=== PATIENT | female | born 1940 | race American Indian/Alaskan Native ===

== ENCOUNTER 2016-07-24 22:18 | Emergency (ER) | payer MEDICARE ==
[2016-07-24 23:58] LABS: Basophils % (Auto) 0.4 % (0.0-1.8); Hematocrit 45.2 % (30.3-42.9); Hemoglobin 14.5 gm/dl (10.1-14.3); Mean Corpuscular HGB Conc 32 % (30-34); Mean Corpuscular Hemoglobin 27 pg (28-32); Mean Corpuscular Volume 83 fl (79-97); Platelet Count 160 K/mm3 (140-440); Red Blood Count 5.46 M/mm3 (3.65-5.03); Red Cell Distribution Width 13.6 % (13.2-15.2); White Blood Count 5.4 K/mm3 (4.5-11.0)
[2016-07-25 01:06] LABS: BUN/Creatinine Ratio 25.71; Blood Urea Nitrogen 18 mg/dL (7-17); Calcium 9.6 mg/dL (8.4-10.2); Carbon Dioxide 27 mmol/L (22-30); Chloride 100.3 mmol/L (98-107); Glucose 102 mg/dL (65-100); Potassium 3.3 mmol/L (3.6-5.0); Sodium 141 mmol/L (137-145)
[2016-07-25 01:19] LABS: Anion Gap 17 mmol/L
[2016-07-25] MEDS ORDERED: K-DUR PO ONE (02:18)
--- NOTE | 2016-07-25 03:01 | Cat Scan Report ---
FINAL REPORT PROCEDURE: CT HEAD/BRAIN WO CON TECHNIQUE: Computerized tomography of the head was performed without contrast material. HISTORY: dizziness, ? dementia, COMPARISON: No prior studies are available for comparison. FINDINGS: Skull and scalp: Normal. Paranasal sinuses: Normal. Ventricles and subarachnoid spaces: Normal. Cerebrum: There is no evidence of acute intracranial hemorrhage, hematoma, infarction, midline displacement or mass. There are numerous small old lacunar infarctions of both basal ganglia.. Cerebellum and brainstem: No evidence of hemorrhage, acute infarction or mass. Vasculature: Normal. Comments: None. IMPRESSION: There is no evidence of an acute intracranial process. Old lacunar infarctions of both basal ganglia are noted.
[2016-07-25] MEDS ORDERED: NORVASC PO ONE (03:19)
[2016-07-25 03:21] LABS: Bilirubin,Urine NEG (Negative); Blood,Urine NEG (Negative); Ketones,Urine NEG (Negative); Leukocyte Esterase,Urine TR (Negative); Mucus,Urine FEW /HPF; Nitrite,Urine NEG (Negative); Protein,Urine <15 mg/dL mg/dL (Negative); Urobilinogen,Urine < 2.0 mg/dL (<2.0)
--- NOTE | 2016-07-25 03:58 | Emergency Department Report ---
ED Dizziness HPI - General Chief Complaint: Dizziness Stated Complaint: DIZZINESS/HEADACHE Time Seen by Provider: 07/25/16 02:04 Source: patient, family Mode of arrival: Ambulatory Limitations: No Limitations - History of Present Illness Initial Comments: 75-year-old female with past medical history previous CVA and hypertension presents to the hospital with intermittent dizziness since Thursday evening ( July 23). Patient initially denies any complaints previously or currently. She mostly complains about inability to sleep. Patient is a questionable of a history of dementia as per her daughter at the bedside and previous medical record reveals that the patient has been on Aricept. Mental status is unchanged from baseline. Apparently patient has also complaining of intermittent headache. Daughter thinks patient is not eating and drinking appropriately and concerned about elevated blood pressure in the ED. Baseline blood pressure is unknown. She has been compliant with her blood pressure which she takes every morning. Patient currently denies headache, chest pain, shortness of breath, or abdominal pain. No reports of nausea, vomiting, either , dysuria, diarrhea, syncope, or fall. - Related Data Home Medications Medication Instructions Recorded Confirmed Last Taken Losartan/Hydrochlorothiazide 1 each PO QDAY 05/09/14 05/09/14 Unknown [Hyzaar 100-25 Tablet] Previous Rx's Medication Instructions Recorded Last Taken Type Donepezil [Aricept] 5 mg PO QDAY #30 tablet 05/10/14 Unknown Rx Potassium Chloride [K-Dur] 20 meq PO QDAY #3 tablet 07/25/16 Unknown Rx Allergies Allergy/AdvReac Type Severity Reaction Status Date / Time lactose AdvReac Vomiting Verified 05/09/14 15:22 ED Review of Systems ROS: Stated complaint: DIZZINESS/HEADACHE Other details as noted in HPI Comment: All other systems reviewed and negative (although somewhat limited due to patient's baseline memory deficits) Other: Constitutional: No fevers chills Eyes: No eye pain visual changes ENT: No ear pain or throat pain Neck: Denies pain Respiratory: Denies cough wheezing shortness of breath Cardiovascular: Denies chest pain, palpitations, syncope GI: Denies abdominal pain, nausea, vomiting, diarrhea : Denies dysuria Musculoskeletal: Denies back pain Skin: Denies rash, lesions, erythema Neurologic: Denies numbness, weakness ED Past Medical Hx - Past Medical History Previous Medical History?: Yes Hx Hypertension: Yes (Possibly, pt poor historian) Hx CVA: Yes - Surgical History Past Surgical History?: No - Social History Smoking Status: Never Smoker Substance Use Type: None - Medications Home Medications: Home Medications Medication Instructions Recorded Confirmed Last Taken Type Losartan/Hydrochlorothiazide 1 each PO QDAY 05/09/14 05/09/14 Unknown History [Hyzaar 100-25 Tablet] Donepezil [Aricept] 5 mg PO QDAY #30 tablet 05/10/14 Unknown Rx Potassium Chloride [K-Dur] 20 meq PO QDAY #3 tablet 07/25/16 Unknown Rx ED Physical Exam - General Limitations: No Limitations - Other Other exam information: General: No limitations, patient is alert in no acute distress Head exam: Atraumatic, normocephalic Eyes exam: Normal appearance, extraocular movements intact ENT: Moist mucous membrane Neck exam: Normal inspection, full range of motion, no meningismus nontender Respiratory exam: Clear to auscultation bilateral, no wheezes, rales, crackles Cardiovascular: Normal rate and rhythm, normal heart sounds Abdomen: Soft, nondistended, and nontender, with normal bowel sounds, no rebound, or guarding Extremity: Full range of motion normal inspection no deformity Back: Normal Inspection, full range of motion, no tenderness Neurologic: Alert, oriented x3, cranial nerves intact, no motor or sensory deficit [id number] function intact Psychiatric: normal affect, normal mood Skin: Warm, dry, intact ED Course Vital Signs 07/24/16 07/25/16 07/25/16 23:14 01:33 01:35 Temperature 98.0 F Pulse Rate 62 58 L 60 Pulse Rate [ Lying] Respiratory 16 19 11 L Rate Blood Pressure 182/76 Blood Pressure [Lying] Blood Pressure 189/85 [Right] O2 Sat by Pulse 100 98 100 Oximetry 07/25/16 07/25/16 07/25/16 01:41 01:45 01:51 Temperature Pulse Rate 55 L 52 L 57 L Pulse Rate [ Lying] Respiratory 14 13 16 Rate Blood Pressure 182/76 149/68 149/68 Blood Pressure [Lying] Blood Pressure [Right] O2 Sat by Pulse 100 99 100 Oximetry 07/25/16 07/25/16 07/25/16 01:55 02:00 02:05 Temperature Pulse Rate 56 L 53 L 54 L Pulse Rate [ Lying] Respiratory 17 14 13 Rate Blood Pressure 149/68 161/67 161/67 Blood Pressure [Lying] Blood Pressure [Right] O2 Sat by Pulse 100 100 100 Oximetry 07/25/16 07/25/16 07/25/16 02:11 02:15 02:21 Temperature Pulse Rate 57 L 54 L 56 L Pulse Rate [ Lying] Respiratory 16 10 L 21 Rate Blood Pressure 161/67 155/66 155/66 Blood Pressure [Lying] Blood Pressure [Right] O2 Sat by Pulse 100 100 100 Oximetry 07/25/16 07/25/16 07/25/16 02:25 02:30 02:53 Temperature Pulse Rate 56 L 55 L 62 Pulse Rate [ Lying] Respiratory 16 17 15 Rate Blood Pressure 155/66 155/63 Blood Pressure [Lying] Blood Pressure [Right] O2 Sat by Pulse 99 100 100 Oximetry 07/25/16 07/25/16 07/25/16 02:55 03:00 03:01 Temperature Pulse Rate 63 57 L 61 Pulse Rate [ 61 Lying] Respiratory 20 14 Rate Blood Pressure 182/91 167/78 Blood Pressure 183/88 [Lying] Blood Pressure 183/88 [Right] O2 Sat by Pulse 100 100 Oximetry 07/25/16 07/25/16 07/25/16 03:05 03:11 03:15 Temperature Pulse Rate 55 L 54 L 55 L Pulse Rate [ Lying] Respiratory 18 14 15 Rate Blood Pressure 167/78 167/78 155/67 Blood Pressure [Lying] Blood Pressure [Right] O2 Sat by Pulse 100 100 100 Oximetry 07/25/16 07/25/16 07/25/16 03:21 03:25 03:30 Temperature Pulse Rate 58 L 58 L 57 L Pulse Rate [ Lying] Respiratory 16 16 13 Rate Blood Pressure 155/67 155/67 145/67 Blood Pressure [Lying] Blood Pressure [Right] O2 Sat by Pulse 100 100 100 Oximetry 07/25/16 07/25/16 07/25/16 03:35 03:41 03:45 Temperature Pulse Rate 55 L 56 L 55 L Pulse Rate [ Lying] Respiratory 14 15 17 Rate Blood Pressure 145/67 145/67 150/70 Blood Pressure [Lying] Blood Pressure [Right] O2 Sat by Pulse 100 100 100 Oximetry 07/25/16 07/25/16 07/25/16 03:51 03:55 04:00 Temperature Pulse Rate 60 55 L 54 L Pulse Rate [ Lying] Respiratory 20 12 13 Rate Blood Pressure 150/70 150/70 152/67 Blood Pressure [Lying] Blood Pressure [Right] O2 Sat by Pulse 100 100 100 Oximetry 07/25/16 07/25/16 07/25/16 04:05 04:11 04:15 Temperature Pulse Rate 55 L 55 L 56 L Pulse Rate [ Lying] Respiratory 12 12 13 Rate Blood Pressure 152/67 152/67 138/68 Blood Pressure [Lying] Blood Pressure [Right] O2 Sat by Pulse 99 100 100 Oximetry 07/25/16 07/25/16 04:21 04:25 Temperature Pulse Rate 56 L 58 L Pulse Rate [ Lying] Respiratory 12 20 Rate Blood Pressure 138/68 138/68 Blood Pressure [Lying] Blood Pressure [Right] O2 Sat by Pulse 100 100 Oximetry - Reevaluation(s) Reevaluation #1: 07/25/16 03:58 Patient's blood pressure is elevated in the ED. Patient's orthostatic vital signs are negative. Patient presents no distress while in the ED. She was treated with potassium for mild hypokalemia. She was given Norvasc for elevated blood pressure, systolic decreased to 155 prior to Norvasc administration. 07/25/16 03:59 ED Medical Decision Making - Lab Data Result diagrams: 07/24/16 23:33 07/24/16 23:33 Lab Results 07/24/16 07/24/16 07/25/16 Range/Units 23:33 23:33 02:52 WBC 5.4 (4.5-11.0) K/mm3 RBC 5.46 H (3.65-5.03) M/mm3 Hgb 14.5 H (10.1-14.3) gm/dl Hct 45.2 H (30.3-42.9) % MCV 83 (79-97) fl MCH 27 L (28-32) pg MCHC 32 (30-34) % RDW 13.6 (13.2-15.2) % Plt Count 160 (140-440) K/mm3 Lymph % (Auto) 23.2 (13.4-35.0) % Early % (Auto) 7.7 H (0.0-7.3) % Eos % (Auto) 1.0 (0.0-4.3) % Baso % (Auto) 0.4 (0.0-1.8) % Lymph # 1.3 (1.2-5.4) K/mm3 Early # 0.4 (0.0-0.8) K/mm3 Eos # 0.1 (0.0-0.4) K/mm3 Baso # 0.0 (0.0-0.1) K/mm3 Seg Neutrophils % 67.7 (40.0-70.0) % Seg Neutrophils # 3.7 (1.8-7.7) K/mm3 Sodium 141 (137-145) mmol/L Potassium 3.3 L (3.6-5.0) mmol/L Chloride 100.3 (98-107) mmol/L Carbon Dioxide 27 (22-30) mmol/L Anion Gap 17 mmol/L BUN 18 H (7-17) mg/dL Creatinine 0.7 (0.7-1.2) mg/dL Estimated GFR > 60 ml/min BUN/Creatinine Ratio 25.71 % Glucose 102 H (65-100) mg/dL Calcium 9.6 (8.4-10.2) mg/dL Troponin T < 0.010 (0.00-0.029) ng/mL Urine Color Yellow (Yellow) Urine Turbidity Clear (Clear) Urine pH 7.0 (5.0-7.0) Ur Specific [place] 1.018 (1.003-1.030) Urine Protein <15 mg/dl (Negative) mg/dL Urine Glucose (UA) Neg (Negative) mg/dL Urine Ketones Neg (Negative) mg/dL Urine Blood Neg (Negative) Urine Nitrite Neg (Negative) Urine Bilirubin Neg (Negative) Urine Urobilinogen < 2.0 (<2.0) mg/dL Ur Leukocyte Esterase Tr (Negative) Urine WBC (Auto) 1.0 (0.0-6.0) /HPF Urine RBC (Auto) 1.0 (0.0-6.0) /HPF U Epithel Cells (Auto) 2.0 (0-13.0) /HPF Urine Mucus Few /HPF - Radiology Data Radiology results: report reviewed (ct head: naf) - Medical Decision Making Only acute abnormality identified is mild hypokalemia and elevated blood pressure. Patient was given a dose of Norvasc in the ED. I'm hesitant to prescribe additional blood pressure meds at this time since I'm unsure if blood pressures just elevated today in the ED or is consistently elevated at home. I do not want to risk hypotension since I do not believe that elevated blood pressure is the cause of patient's symptoms today. I will recommend that daughter continued to monitor blood pressure, keep a log, and discussed this with the primary care doctor for possible medication changes. Several days with the potassium will be prescribed for mild hypokalemia since patient is also on a diuretic - Differential Diagnosis dementia, delirium, dehydration, anemia, infection, CVA Critical Care Time: No Critical care attestation.: If time is entered above; I have spent that time in minutes in the direct care of this critically ill patient, excluding procedure time. ED Disposition Clinical Impression: Hypertension, Dizziness, Dementia, Hypokalemia Disposition: DISCHARGED TO HOME OR SELFCARE Is pt being admited?: No Does the pt Need Aspirin: No Condition: Stable Instructions: Hypertension (ED), Dementia (ED), Hypokalemia (ED) Additional Instructions: You have received a blood pressure medication in the ED. Recheck blood pressure prior to taking your prescribed blood pressure medication. If you're top number is less than 140 then hold your a.m. blood pressure medication dose. Keep a log of your blood pressure. Inform your doctor of the blood pressure trends to determine if an additional blood pressure medication needs to be added. Your potassium was slightly low today. You received potassium in the ER and a prescription for several days worth. Have your level rechecked by her primary care doctor. Return if symptoms worsen. Prescriptions: Potassium Chloride [K-Dur] 20 meq PO QDAY #3 tablet Referrals: PRIMARY CARE [Primary Care Provider] - 2-3 Days Time of Disposition: 04:34
[2016-07-25 04:43] VITALS: BP 142/64
== END 2016-07-25 04:58 | disposition home or self-care (01) ==
LOC: ED 22:18
DX: I10 Essential (primary) hypertension (principal); R42 Dizziness and giddiness; F03.90 Unspecified dementia, unspecified severity, without behavioral disturbance, psychotic disturbance, mood disturbance, and anxiety; E87.6 Hypokalemia; Z86.73 Personal history of transient ischemic attack (TIA), and cerebral infarction without residual deficits
CPT/HCPCS: 36415; 70450; 80048; 81001; 84484; 85025; 93005; 93010; 99284